=== PATIENT | female | born 1990 | race Two or more races ===

== ENCOUNTER 2017-11-11 18:06 | Emergency (ER) | payer MEDICAID, OTHER ==
[~2017-11-11] VITALS: Ht 162.6 cm; Wt 50.8 kg
[2017-11-11 18:10] VITALS: BP 132/64
[2017-11-11] MEDS ORDERED: Acetaminophen 500mg (ES) tab ORAL ONE (18:45)
[2017-11-11] MEDS ORDERED: Methocarbamol 750mg tab ORAL ONE (18:45)
[2017-11-11] MEDS ORDERED: TYLENOL EXTRA500 MG ORAL (18:58)
[2017-11-11] MEDS ORDERED: ROBAXIN-750750 MG PO (18:58)
[2017-11-11 19:09] VITALS: BP 124/76
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
== END 2017-11-11 19:11 | disposition home or self-care (01) ==
LOC: EMR 18:45
DX: S16.1XXA Strain of muscle, fascia and tendon at neck level, initial encounter (principal); S33.5XXA Sprain of ligaments of lumbar spine, initial encounter; V43.62XA Car passenger injured in collision with other type car in traffic accident, initial encounter; Y92.410 Unspecified street and highway as the place of occurrence of the external cause
CPT/HCPCS: 99284